=== PATIENT | female | born 1965 | race Caucasian/White ===

== ENCOUNTER 2016-09-24 07:43 | Day surgery (SDC) | payer OTHER ==
[2016-06-17 08:29] VITALS: BMI 28.4
[~2016-09-24] VITALS: Ht 157.5 cm; Wt 75.5 kg
[~2016-09-24 07:43] MED LIST: CEFAZOLIN 1 GM INJ ONE; CEFAZOLIN 2 GM/50 ML (PMX) 50 ML IVPB ONE; DESFLURANE 15 MIN ONE; EPHEDrine SULFATE 50 MG/5 ML SYG ONE; LIDOCAINE 2% (SDV) 5 ML INJ ONE; PROPOFOL 200 MG INJ ONE
[2016-09-24] MEDS ORDERED: CEFAZOLIN 2 GM/50 ML (PMX) 50 ML IVPB ONE (08:00)
[2016-09-24] MEDS ORDERED: BUPIVACAINE LIPOSOME/PF 266 MG/20 ML VIAL INFIL SCH (08:00)
[2016-09-24 11:17] VITALS: BP 136/66; PULSE 84; RESP 16; Ht 157.5 cm; Wt 75.5 kg
[2016-09-24] MEDS ORDERED: GLIP-95 PO (11:35)
[2016-09-24] MEDS ORDERED: SYMB80120 INHALATION (11:35)
[2016-09-24] MEDS ORDERED: LISI10TA2 PO (11:35)
[2016-09-24] MEDS ORDERED: PIOG15TA21 PO (11:35)
[2016-09-24] MEDS ORDERED: METF850T PO (11:35)
--- NOTE | 2016-09-24 14:17 | HPN ---
Date/Time of Note Date/Time of Note DATE: 09/24/16 TIME: 14:17 Interval H&P Admission Note Pt. seen H&P reviewed: No system changes DELMIS OLIVAREZ MD Sep 24, 2016 14:17
[2016-09-24] MEDS ORDERED: SODIUM CL BACTERIOSTATIC 30 ML INJ ONE (14:23)
[2016-09-24] MEDS ORDERED: GENTAMICIN 80 MG INJ ONE (14:25)
--- NOTE | 2016-09-24 14:37 | OPR ---
Date/Time of Note Date/Time of Note DATE: 09/24/16 TIME: 14:36 Operative Report Free Text/Dictation Plastic Surgery Operative Report Preoperative diagnosis: macromastia and cervicalgia Postoperative diagnosis: same Procedure:bilateral breast reduction Surgeon: alana Newman.:JULIA Simpson Anesthesia:general EBL:10cc IV fluids:per flow sheet Findings:n/a Complications:none Dispo:home Indications for procedure:50 yo F presents for a bilateral breast reduction. We discussed the risks, benefits, and alternatives of performing this procedure including the risks of bleeding, infection, wound healing problems, changes in nipple sensation, partial or total nipple necrosis, asymmetry, fat necrosis, seroma, and for revision. The patient states that she understands these risks and would like to proceed with the procedure. All questions were answered, no guarantees were given with regards the outcome of this procedure Description of procedure: Preoperatively, with the patient in the sitting position, a bilateral Chou pattern reduction mammoplasty with vertical limbs of 8.5 cm and pedicle width of 8cm was marked. The patient was taken to the operating room at [facility] where general anesthesia was induced. Next, she was prepped and draped in the usual sterile fashion. First, the 42 mm areola marker was placed around the each areola and total of 60cc of a dilute epinephrine solution was injected into the planned area of de- epithelialization in each breast. The pedicles were then de-epithelialized with the 10 blade and scissors. Attention was then turned to the right breast where the incision around the pedicle was deepened with the peak plasma blade. Next, the remainder of the incisions were made with the peak plasma blade, and a medial flap was developed. A lateral flap was then developed with the plasma blade as well, and then the medial and lateral dissections were joined superiorly. The incisions around the pedicle were deepened to the level of the chest wall, taking special care to leave a fascial layer over the chest wall to preserve sensation, and then the tissue intervening between the flaps and pedicle was excised. The breast was irrigated with antibiotic irrigation, hemostasis was achieved with the bipolar cautery, and then the breast was towel clipped closed. Attention was then turned to the other breast where a similar procedure was carried out. The pedicle was incised, and then medial and lateral flaps were elevated, and then the dissection for joint superiorly. The tissue between the pedicle and the flaps was excised taking special care to leave a layer of fascia over the chest wall. The breast was irrigated with antibiotic irrigation , hemostasis was achieved with the bipolar cautery, and then the breast was towel clipped closed. The patient was sat up on the operating room table, symmetry was good, and therefore the patient was sat back down. A total of 60 mL of a dilute Exparel solution were then injected into the breasts. A #15 Winston drain was inserted into each breast through a stab incision laterally and was secured with 2-0 nylon suture. Next, the incisions were closed with a deep layer of 3-0 Vicryl sutures, 4-0 Monocryl suture, and then skin glue. The nipples were pink and viable at the completion of the case. The patient tolerated the procedure well, there were no complications, she'll follow up in 1 week DELMIS OLIVAREZ MD Sep 24, 2016 14:36
[2016-09-24] MEDS ORDERED: MIDAZOLAM 1 MG/ML 2 ML INJ ONE (14:46)
[2016-09-24] MEDS ORDERED: ONDANSETRON 4 MG INJ ONE (14:47)
[2016-09-24] MEDS ORDERED: DEXAMETHASONE 4 MG/ML 1 ML INJ ONE (14:50)
[2016-09-24] MEDS ORDERED: ONDANSETRON 4 MG INJ IV PRN ×2 (15:00→15:30)
[2016-09-24] MEDS ORDERED: PROCHLORPERAZINE 10 MG INJ IV PRN (15:00)
[2016-09-24] MEDS ORDERED: HYDROCODONE/APAP (5/325) TAB PO PRN (15:00)
[2016-09-24] MEDS ORDERED: morphine 2 MG INJ IV PRN (15:00)
[2016-09-24] MEDS ORDERED: LABETALOL HCL 20MG INJ IV PRN (15:30)
[2016-09-24] MEDS ORDERED: MIDAZOLAM 1 MG/ML 2 ML INJ IV PRN (15:30)
[2016-09-24] MEDS ORDERED: HYDROmorphONE (0.2 MG/ML) 10ML SYG IV PRN ×3 (15:30)
[2016-09-24] MEDS ORDERED: EPHEDrine SULFATE 50 MG/5 ML SYG IV PRN (15:30)
[2016-09-24] MEDS ORDERED: hydrALAzine 20 MG INJ IV PRN (15:30)
[2016-09-24] MEDS ORDERED: MEPERIDINE 25 MG INJ IV PRN (15:30)
[2016-09-24] MEDS ORDERED: TRIMETHOBENZAMIDE 100 MG/ML VIAL IM PRN (15:30)
[2016-09-24] MEDS ORDERED: DIPHENHYDRAMINE 50 MG INJ IV PRN (15:30)
[2016-09-24] MEDS ORDERED: FENTAnyl 50 MCG/ML VIAL IV PRN ×3 (15:30)
[2016-09-24] MEDS ORDERED: hydrALAzine 20 MG INJ ONE (15:31)
[2016-09-24] MEDS ORDERED: PROPOFOL 100 ML ONE (15:31)
[2016-09-24] MEDS ORDERED: GLYCOPYRROLATE 0.4 MG INJ ONE (15:31)
[2016-09-24] MEDS ORDERED: ROCURONIUM 50 MG INJ ONE (15:31)
[2016-09-24] MEDS ORDERED: NEOSTIGMINE 3 MG/3 ML SYRINGE ONE (15:31)
[2016-09-24] MEDS ORDERED: EPINEPHrine 1 MG INJ SC ONE (15:37)
[2016-09-24] MEDS ORDERED: POLYMYXIN/BACITRACIN 1L IRRIG IRR ONE (15:39)
[2016-09-24 17:30] VITALS: BP 129/71; PULSE 115; RESP 18
== END 2016-09-24 19:00 | disposition home or self-care (01) ==
LOC: SDS 07:43
PROVIDERS: ATTEND Surgery Plastic and Reconstructive Surgery
DX: N62 Hypertrophy of breast (principal); M54.2 Cervicalgia; J45.909 Unspecified asthma, uncomplicated; K21.9 Gastro-esophageal reflux disease without esophagitis; E78.5 Hyperlipidemia, unspecified; E11.9 Type 2 diabetes mellitus without complications; I10 Essential (primary) hypertension
CPT/HCPCS: 19318; 82962; 84703; C9290; J0171; J0360; J0690; J1100; J1580; J2250; J2405; J2710; J3010; Z7512; Z7610; J1170